=== PATIENT | male | born 1990 ===

== ENCOUNTER 2019-07-31 17:31 | Emergency (ER) | payer MEDICARE ==
[~2019-07-31] VITALS: Ht 170.2 cm; Wt 82.5 kg
[2019-07-31 17:33] VITALS: BP 141/83
--- NOTE | 2019-07-31 17:49 | NUR ---
PT HERE WITH C/O LEFT ARM INFECTION, PT STATES HE WAS SEEN A WEEK AGO AND WAS SENT HOME ON PO ABX AND "IT NEVER GOT ANY BETTER."
--- NOTE | 2019-07-31 19:22 | NUR ---
Patient/Caregiver given discharge instructions and they have confirmed that they understand the instructions. Patient ambulatory with steady gait.
== END 2019-07-31 19:25 | disposition home or self-care (01) ==
LOC: ED 19:23
DX: B02.33 Zoster keratitis (principal)
CPT/HCPCS: 99283